=== PATIENT | female | born 1935 | race Caucasian/White ===

== ENCOUNTER 2023-06-27 13:45 | Outpatient (RCR) | payer MEDICARE, SELFPAY | END 2023-10-06 13:35 | disposition home or self-care (01) | PROVIDERS: PCP Orthopaedic Surgery; Visit Provider Family Medicine | DX: M46.1 Sacroiliitis, not elsewhere classified (principal); M70.61 Trochanteric bursitis, right hip; Z51.89 Encounter for other specified aftercare | CPT/HCPCS: 97110; 97140; 97161 ==

== ENCOUNTER 2024-06-12 10:30 | Outpatient (RCR) | payer MEDICARE, SELFPAY | END 2024-08-01 13:33 | disposition home or self-care (01) | PROVIDERS: PCP Orthopaedic Surgery; Visit Provider Family Medicine | DX: S16.1XXA Strain of muscle, fascia and tendon at neck level, initial encounter (principal); M54.2 Cervicalgia; M62.81 Muscle weakness (generalized); Z51.89 Encounter for other specified aftercare | CPT/HCPCS: 97012; 97110; 97140; 97161 ==

== ENCOUNTER 2025-01-18 13:05 | Emergency (ER) | payer MEDICARE, SELFPAY ==
[2025-01-18] VITALS (86 sets, daily range): BP systolic 170–212; BP diastolic 70–94; PULSE 61–77; RESP 0–30; TEMP 36.6–36.7; O2SAT 78–100; BMI 23.7
--- OUTSIDE RECORDS SUMMARY | 2025-01-18 13:08 | XMS_ITS | Clinical Summary ---
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 Length of need 99 1 Each 07/02/19 21 Active cholecalciferol (Vitamin D) 1,000 unit capsule Take 1 Capsule (1,000 units) by mouth once daily. 0 10/05/19 23 Active calcium carbonate (CALTRATE) 600 mg calcium (1,500 mg) tablet Take 1 Tablet (600 mg) by mouth two times daily with meals. 180 Tablet 3 10/05/19 23 Active ibuprofen (ADVIL; MOTRIN) 200 mg tablet Take 1 Tablet (200 mg) by mouth once daily. 07/04/19 25 Active gabapentin 100 mg capsuleIndication s:Cervical radiculitis,Cervi ricardo spondylosis,Cervi ricardo myofascial pain syndrome Take 1 Capsule (100 mg) by mouth two times daily. 180 Capsule 3 08/07/19 25 Active cyanocobalamin 1,000 mcg tabletIndications :B12 deficiency TAKE ONE TABLET BY MOUTH ONE TIME DAILY 90 Tablet 1 10/15/19 25 Active lisinopriL (PRINIVIL; ZESTRIL) 20 mg tabletIndications :HTN (hypertension) TAKE ONE TABLET BY MOUTH ONE TIME DAILY 90 Tablet 01/12/20 25 Active rosuvastatin (CRESTOR) 10 mg tabletIndications :Mixed hyperlipidemia Take 1 Tablet (10 mg) by mouth at bedtime. 90 Tablet 1 01/12/20 25 Active levothyroxine (SYNTHROID) 75 mcg tabletIndications :Hypothyroidism (acquired) Take 1 Tablet (75 mcg) by mouth before breakfast. 90 Tablet 01/12/20 25 Active clotrimazole (LOTRIMIN) 1 % creamIndications: Skin disease, fungal Apply topically to affected area(s) two times daily. 45 g 03/23/20 24 2024 Discontinued(* Med complete/Regim en complete/Level of care change) rosuvastatin (CRESTOR) 10 mg tabletIndications :Mixed hyperlipidemia Take 1 Tablet (10 mg) by mouth at bedtime. 90 Tablet 2 04/24/20 24 2024 Discontinued lisinopriL (PRINIVIL; ZESTRIL) 20 mg tabletIndications :HTN (hypertension) Take 1 Tablet (20 mg) by mouth once daily. 90 Tablet 2 04/30/20 24 2024 Discontinued levothyroxine 75 mcg tabletIndications :Hypothyroidism (acquired) Take 1 Tablet (75 mcg) by mouth before breakfast. 90 Tablet 10/15/19 25 2024 Discontinued Active Problems Problem Noted Date Diagnosed Date Sacroiliac inflammation 10/31/2023 Hyperlipidemia, unspecified 08/16/2017 Chronic kidney disease, stage III (moderate) 07/2016 History of partial nephrectomy 09/01/2016 Overview (09/01/2016): Renal hemangioma 08/2016 Renal mass, left 03/03/2016 Osteopenia 10/10/2015 Resolved Problems Problem Noted Date Diagnosed Date Resolved Date Acute deep vein thrombosis ( DVT) of popliteal vein of left lower extremity 10/10/2015 07/29/2021 Encounters Date Type Department Care Team Description 01/18/2025 12:10 PM CDT Office Visit [facility] [place] [address] [address] Delphine Chavarria MD Blood Pressure; Chest Pain 01/18/2025 11:45 AM CDT Orders Only [facility] [address] [place] [address] [place], [place] <No scans attached> 01/18/2025 10:40 AM CDT Nurse/Clinic Staff Only [facility] [address] [facility] [address] Blood Pressure 01/18/2025 Nurse Triage [facility] [address] [place] [address] Delphine Chavarria MD 01/18/2025 Travel 01/13/2025 Travel 01/09/2025 Refill [facility] [address] [facility] [address] Delphine Chavarria MD Refill Request (Lisinopril, Rosuvastatin, Levothyroxine) from Last 3 Months Immunizations Immunization Administration Dates Next Due COVID-19 VACCINE SPIKEVAX (M ODERNA 50MCG/0.5ML) 12YO+ PFS 03/06/2024,08/25/2023,03/15/2023 COVID-19 vaccine (fake company 2.0-Bio NTech 30mcg/0.3mL) 12YO+ BIVALENT PF, MDV 02/04/2022 COVID-19 vaccine (Pfizer-Bio NTech 30mcg/0.3mL) 12YO+ KAYKAY-SUCROSE PF, MDV 08/26/2021 COVID-19 vaccine (Lift World[employer] NTech 30mcg/0.3mL) PF, MDV 02/14/2021,07/15/2020,06/24/2020 Dtap Unspecified Formulation 03/01/2016 Influenza Virus, Unspecified 02/13/2006 Influenza, High-dose Inactivated 018,03/04/2017,03/01/2016,2011 Influenza, High-dose Quadriv alent Inactivated 03/05/2022,03/07/2020 Influenza, Inactivated AIIV4 (Age 65+ Years) Preserv Free 03/15/2023 Influenza, Inactivated IIV3 (Age 65+ Years) Preserv Free 03/06/2024,01/26/2019 Pneumococcal Poly,23-Valent (Pneumovax) 02/13/2006 Pneumococcal conj 13-Valent (Prevnar 13) 03/01/2016 Td, Preservative Free (age > = 7 Years) 02/06/2007 Tdap 03/01/2016 Tdap, Unspecified 03/01/2016 Family History Medical History Relation Name Comments Other Father AAA Cancer-breast Mother Stroke Mother Cancer Paternal Grandmother Stomach Cancer-ovarian No Family History Relation Name Status Comments Father Mother Paternal Grandmother Social History Tobacco Use Types Packs/Day Years Used Date Smoking Tobacco: Never Smokeless Tobacco: Never Tobacco Cessation:Counseling Given: Yes Alcohol Use Standard Drinks/Week Comments Yes 7 (1 standard drink = 0.6 oz pur e alcohol) Glass of wine a night PHQ-2 Answer Date Recorded PHQ-2 TOTAL SCORE 2 03/28/2024 Social Connections Answer Date Recorded Do you often feel lonely or isolated from those around you? 0 10/31/2023 Financial Resource Strain Answer Date R ecorded Difficulty of Paying Living Expenses 3 10/31/2023 Difficulty of Paying Living Expenses Not on file 10/31/2023 Food Insecurity Answer Date Recorded Do you worry your food will run out before you are able to buy more? 1 10/31/2023 Transportation Needs Answer Date Record ed Does lack of transportation keep you from medica l appointments? 1 10/31/2023 Does lack of transportation keep you from work, meetings or getting things that you need? 1 10/31/2023 Housing Stability Answer Date Recorded What is your housing situation today? 1 10/31/2023 Utilities Answer Date Recorded Do you have trouble paying f or utilities (for example, heat, electricity, water, phone)? 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 Gender Identity Not on file Sexual Orientation Not on file Occupation Industry Job Start Date Job End Date Retired Not on file Not on file Not on file Obstetrics History Para Term AB IAB SAB Ectopic Multiple Livin g Live Births 0 0 0 0 0 0 0 0 0 0 Last Filed Vital Signs Vital Sign Reading Time Taken Comments Blood Pressure 204/82 01/18/2025 12:13 PM CDT Pulse 79 01/18/2025 12:13 PM CDT Temperature 36.5 C (97.7 F) 07/04/2024 8:22 AM DIRECTOR OF CONSERVATION Respiratory Rate 16 07/04/2024 8:22 AM DIRECTOR OF CONSERVATION Oxygen Saturation 98% 01/18/2025 12:13 PM CDT Inhaled Oxygen Concentration - - Weight 61.1 kg (134 lb 9.6 oz) 01/18/2025 12:13 PM CDT Height 160 cm (5' 3) 08/08/2024 8:02 AM CDT Body Mass Index 23.84 08/08/2024 8:02 AM CDT Plan of Treatment Health Maintenance Due Date Last Done Comments Zoster (shingles) series for age 50+ (1 of 2) 1987 RSV vaccine for adults or (1 - 1-dose 75+ series) 01/31/2012 Influenza Vaccine (#1) 2025 , 03/15/2023, 01/26/2019, Additional history exists Depression screening for age 12+ 03/28/2025 03/28/2024 Medicare Wellness for age 65+ 03/29/2025 03/28/2024, 10/04/2022, 10/01/2021, Additional history exists BMI (ht and wt on same day) for age 18+ 08/08/2025 08/08/2024, 07/04/2024, 07/04/2024, Additional history exists Tetanus booster 03/01/2026 03/01/2016, 02/13, 02/06/2007 Pneumococcal series for age 50+ Completed 03/01/2016, 02/13/2006 DEXA/DXA scan for age 65+ Completed 10/05/2022, COVID-19 vaccine series Completed 10/13/19 25, 03/06/2024, 08/25/2023, Additional history exists Hepatitis B series for 19+ Aged Out N o longer eligible based on patient's age to complete this topic Procedures Procedure Name Priority Date/Time Associated Diagnosis Comments XR DXA BONE DENSITY 2 SITES AXIAL Routine 10/05/2022 1:14 PM CDT Menopause from Last 3 Months or Most Recently Relevant to Health Maintenance Results * (ABNORMAL) XR DXA BONE DENSITY 2 SITES AXIAL (10/05/2022 1:14 PM CDT) Anatomical Region Laterality Modality Spine, HIPS, HIPL, HIPR Other Impressions 10/15/2022 4:44 PM CDT Osteopenia. RECOMMENDATIONS: The National Osteoporosis Foundation recommends pharmacologic treatment for patients with T-scores of -2.5 or less, patients with prior history of fragility fractures, or patients with 10-year probability of greater than 3% at hips or greater than 20% of suffering major osteoporotic fractures. Recommend continued optimization of calcium and vitamin D intake through dietary means and/or supplementation and regular exercise. Consider pharmacologic therapy for osteopenia with increased fracture risk. Follow-up bone density reading in 2 years if therapy initiated to assess therapeutic efficacy. Benita Cruz PA-C [facility] 10/15/2022 Narrative 10/15/2022 4:44 PM CDT For Patients: Results are automatically released to your [facility] ([employer]) account once available, in compliance with federal regulations. This means that you may see your results before your provider has had a chance to review them. Please allow 2-3 business days for your provider to comment on the results. XR DXA Bone Mineral Density (BMD) EXAM LOCATION: [address] [address] PATIENT NAME: Osmany Baez DATE OF : 1935 EXAM DATE: 10/05/2022 REQUESTING PROVIDER: Delphine Chavarria MD GENDER AT : female HEIGHT: 5' 3.5 (10/04/2022) WEIGHT: 128 lb (10/04/2022) MENOPAUSAL STATUS: Postmenopausal RACE/ETHNICITY: White RISK FACTORS: White Race CURRENT MEDICATION FOR BONE LOSS: NONE INDICATION: Follow-up of existing osteopenia and Post-Menopause COMPARISON DATE(S): 2017 DXA scans are compared to prior studies for a patient only when the two (or more) studies were performed on the same scanner. It is not possible to compare data generated on one scanner to data from another because there are not standards in DXA equipment. This applies even if the two scanners are made by the same concrete mixer operator helper. PROCEDURE: Dual-energy x-ray absorptiometry performed with routine technique. Reporting is completed in the form of a T-score. The T-score represents the standard deviation from peak bone mass based on young healthy adult. A Z-score is used for diagnosis in premenopausal women, and for men under the age of 50. FINDINGS: RESULT LUMBAR SPINE L1 - L4(L3) BMD: 1.249 g/cm2 T-Score: + 0.5 Z-Score: + 2.7 Change from prior in 2018: Decrease 4.1%. RESULTS FEMUR Left femoral neck BMD: 0.742 g/cm2 T-Score: - 2.1 Z-Score: + 0.4 Change from prior in 2018: Decrease 4.4%. Right femoral neck BMD: 0.777 g/cm2 T-Score: - 1.9 Z-Score: + 0.7 Change from prior in 2018: Decrease 1.0%. Left hip BMD: 0.809 g/cm2 T-Score: - 1.6 Z-Score: + 0.9 Change from prior in 2018: Decrease 5.5%. Right hip BMD: 0.846 g/cm2 T-Score: - 1.3 Z-Score: + 1.2 Change from prior in 2018: Decrease 4.6%. WHO criteria: Normal: T-score at or above -1 SD Osteopenia: T-score between -1.1 and -2.4 SD Osteoporosis: T-score at or below -2.5 SD FRAX RISK CALCULATION (USED FOR OSTEOPENIA ONLY): 10-year probability of major osteoporotic fracture: 15.3%. 10-year probability of hip fracture: 5.2%. Delphine Chavarria MD DEXA Final R esult from Last 3 Months or Most Recently Relevant to Health Maintenance Insurance MEDICARE PART A HB ONLY MEDICARE PART B HB ONLY [facility] MR Advance Directives Documents on File Type Date Recorded Patient Crab Backer Expl anation Healthcare Directive 07/02/2020 12:34 PM H [facility] CARE DIRECTIVE * Full Code (Latest Code Status on File) Date Activated Date Inactivated Comments 08/25/2016 11:13 AM 08/28/2016 5:20 PM Care Teams Construction Or Leak Gang Laborer Relationship Specialty Start Date End Date Delphine Chavarria MD [address] [place] [address] PCP - General Family Practice 01/18/25 Barby Plata, RN Registered Nurse 08/26/16
--- NOTE | 2025-01-18 13:21 | CRLHL7_ITS ---
For Patients: As a result of the Century Cures Act, medical imaging exams and procedure reports are released immediately into your electronic medical record. You may view this report before your referring provider. If you have questions, please contact your health care provider. INDICATION: Chest pain. TECHNIQUE: Chest 1 view. COMPARISON: None. FINDINGS: Cardiovascular and mediastinum: Heart size and vasculature are normal in caliber and appearance. Lungs and pleural spaces: Lungs are clear. No pleural effusion, or pneumothorax. Bones and soft tissues: Unremarkable for age. IMPRESSION: No evidence of an acute pulmonary process. Dictated by Conrad Hernandez MD @ 01/18/2025 1:46:47 PM (Electronically Signed)
--- NOTE | 2025-01-18 13:29 | ED.GENADULT ---
HPI - General Adult General Chief complaint: Chest Pain Stated complaint: possible heart attack, from [facility] Time Seen by Provider: 01/18/25 13:15 History of Present Illness HPI narrative: Patient is an 89 year white female who has no history of coronary disease, was seen in the clinic today for blood pressure check in noted to have elevated blood pressure and started getting chest tightness. She noted the chest tightness started after her 's urinary catheter was not working and this was stressful. She also had a lot of psychosocial stressors with family members including her having cancer by her report. She has not had chest pain prior. She had no radiation to her neck arm jaw no diaphoresis, no shortness of breath. Just feels generally ?tight? in her chest. This tends to come and go. No leg swelling or edema. No bleeding or clotting problems. Patient has hypertension and elevated lipids. Also hypothyroidism. Does not smoke, nondiabetic. Related Data Home Medications ?Medication ?Instructions ?Recorded ?Confirmed calcium acetate PO 06/29/24 06/29/24 cyanocobalamin (vitamin B-12) 1,000 mcg PO DAILY 06/29/24 06/29/24 1,000 mcg tablet levothyroxine 75 mcg tablet 75 mcg PO QAM 06/29/24 06/29/24 lisinopril 20 mg tablet 20 mg PO DAILY 06/29/24 06/29/24 rosuvastatin 10 mg tablet 10 mg PO QPM 06/29/24 06/29/24 Allergies Allergy/AdvReac Type Severity Reaction Status Date / Time No Known Drug Allergies Allergy Verified 06/29/24 13:24 Review of Systems Status of ROS: Reports: 6 or more systems reviewed and unremarkable except as noted in History and below PFSH PFS Social History Smoking Status: Never smoker Do you use any of these nicotine containing products: None Second hand tobacco smoke exposure: No How often do you have a drink containing alcohol: never How often do you have six or more drinks on one occasion: Never AUDIT-C Alcohol total score: 0 Non-prescribed substance use: denies use service: No Exam Narrative: Exam Narrative: Objective: Patient's blood pressure is 212/94 afebrile pulse is 77 regular O2 sat 99% on room air Alert orient x3 noncyanotic No distress HEENT shows no facial asymmetry no scleral icterus neck is supple chest is clear no rales or wheezing heart rhythm regular heart murmur abdomen benign soft extremities are no edema neurologic nonfocal upper extremities normal strength and sensation lower extremities noted, patient is ambulatory. Const: Vital Signs, click to edit/add: Vital Signs - 24 hr 01/18/25 13:10 01/18/25 13:30 01/18/25 13:35 Temperature 97.8 F Pulse Rate [Pulse Oximeter] 77 Respiratory Rate 18 18 Blood Pressure [Ri ght Upper Arm] 212/94 H Pulse Oximetry 99 99 99 Oxygen Delivery Me thod Room Air 01/18/25 13:35 01/18/25 13:36 01/18/25 13:38 Temperature Pulse Rate [Pulse Oximeter] Respiratory Rate 12 20 13 Blood Pressure [Ri ght Upper Arm] Pulse Oximetry 94 99 Oxygen Delivery Me thod 01/18/25 13:40 01/18/25 13:41 01/18/25 13:42 Temperature Pulse Rate [Pulse Oximeter] Respiratory Rate 9 L 18 11 L Blood Pressure [Ri ght Upper Arm] Pulse Oximetry 95 96 Oxygen Delivery Me thod 01/18/25 13:44 01/18/25 13:46 01/18/25 13:48 Temperature Pulse Rate [Pulse Oximeter] Respiratory Rate 8 L 12 8 L Blood Pressure [Ri ght Upper Arm] Pulse Oximetry 99 96 Oxygen Delivery Me thod 01/18/25 13:50 01/18/25 13:52 01/18/25 13:54 Temperature Pulse Rate [Pulse Oximeter] Respiratory Rate 13 14 12 Blood Pressure [Ri ght Upper Arm] Pulse Oximetry 100 100 99 Oxygen Delivery Me thod 01/18/25 13:56 01/18/25 13:58 01/18/25 14:00 Temperature Pulse Rate [Pulse Oximeter] Respiratory Rate 14 12 14 Blood Pressure [Ri ght Upper Arm] Pulse Oximetry 100 99 93 Oxygen Delivery Me thod 01/18/25 14:02 01/18/25 14:03 01/18/25 14:04 Temperature Pulse Rate [Pulse Oximeter] Respiratory Rate 11 L 16 16 Blood Pressure [Ri ght Upper Arm] Pulse Oximetry 100 93 99 Oxygen Delivery Me thod 01/18/25 14:06 01/18/25 14:08 01/18/25 14:10 Temperature Pulse Rate [Pulse Oximeter] Respiratory Rate 14 13 Blood Pressure [Ri ght Upper Arm] 190/90 H Pulse Oximetry 98 96 Oxygen Delivery Me thod 01/18/25 15:03 Temperature 98.0 F Pulse Rate [Pulse Oximeter] 63 Respiratory Rate 16 Blood Pressure [Ri ght Upper Arm] 170/77 H Pulse Oximetry 98 Oxygen Delivery Me thod Room Air Course Vital Signs Vital signs: Initial Vital Signs Temperature 97.8 F 01/18/25 13:10 Temperature Source Temporal Artery Scan 01/18/25 13:10 Pulse Rate 77 01/18/25 13:10 Pulse Rhythm Regular 01/18/25 13:10 Respiratory Rate 18 01/18/25 13:10 Blood Pressure 212/94 H 01/18/25 13:10 Blood Pressure Mean 133 H 01/18/25 13:10 Blood Pressure Position Sitting 01/18/25 13:10 Pulse Oximetry 99 01/18/25 13:10 Oxygen Delivery Method Room Air 01/18/25 13:10 Vital Signs Temperature 97.8 F 01/18/25 13:10 Pulse Rate 77 01/18/25 13:10 Respiratory Rate 18 01/18/25 13:10 Blood Pressure 212/94 H 01/18/25 13:10 Pulse Oximetry 99 01/18/25 13:10 Oxygen Delivery Method Room Air 01/18/25 13:10 Temperature 98.0 F 01/18/25 15:03 Pulse Rate 63 01/18/25 15:03 Respiratory Rate 16 01/18/25 15:03 Blood Pressure 170/77 H 01/18/25 15:03 Pulse Oximetry 98 01/18/25 15:03 Oxygen Delivery Method Room Air 01/18/25 15:03 Medications Administered Medications: Generic Name Dose Route Start Last Admin Trade Name Freq PRN Reason Stop Dose Admin Heparin Sodium/Dextrose 25,000 unit in 500 mls @ 0 mls/hr 01/18/25 14:45 01/18/25 15:00 Heparin IV 12 unit/hr .Q0M ALEXIS 0.24 mls/hr Protocol Administration Per Protocol Discontinued Medications Generic Name Dose Route Start Last Admin Trade Name Freq PRN Reason Stop Dose Admin Aspirin 324 mg 01/18/25 13:20 01/18/25 13:41 Aspirin 81 Mg Tab.Chew PO 01/18/25 13:21 324 mg ONCE ONE Administration Heparin Sodium (Porcine) 3,600 unit 01/18/25 14:31 01/18/25 15:00 Heparin 5,000 Unit/0.5 Ml Inj 60 unit/kg (3600 unit) 01/18/25 14:32 3,600 unit IVP Administration ONCE ONE Sodium Chloride 500 mls @ 500 mls/hr 01/18/25 13:20 01/18/25 13:43 0.9 % Sodium Chloride 500 Ml IV 01/18/25 14:19 500 mls/hr .Q1H ONE Administration Metoprolol Tartrate 25 mg 01/18/25 13:45 01/18/25 13:41 Metoprolol Tartrate 25 Mg Tablet PO 01/18/25 13:46 25 mg ONCE ONE Administration Metoprolol Tartrate 12.5 mg 01/18/25 14:45 01/18/25 14:55 Metoprolol Tartrate 25 Mg Tablet PO 01/18/25 14:46 12.5 mg ONCE ONE Administration Medical Decision Making MDM Narrative Medical decision making narrative: 89-year-old female with hypertension and a lot of psychosocial stressors presents with chest tightness. Her initial EKG by my read independently shows sinus rhythm with right bundle branch block but no acute acute ST T wave changes. These symptoms did seem to start with a stressful event of elevated blood pressure and 's catheter malfunctioning. Might be reasonable to give her aspirin, will give her a small dose IV Ativan to see if that helps her symptoms. Will also because her blood pressure is elevated and she is not sure she took her lisinopril today give her 25 mg of metoprolol orally. Will check electrolytes, troponin, put on a phototypesetting equipment monitor and oximeter. Patient is relatively asymptomatic at present. Will also check a chest x-ray. Disposition pending findings on the labs and her clinical response. Addendum 2:20 p.m.: The patient is got no further chest tightness. Her EKG shows right bundle-branch block no obvious acute EKG changes. She also has a troponin that is slightly elevated in the lab troponin I is 0.15. This is above normal. She is not having ongoing symptoms. Her blood pressures improved. Will discuss with [facility] regarding options for treatment. She is pretty active in vital despite her age and perhaps even angiography and stenting might be reasonable. At this point given she is asymptomatic and will give her additional medication but will talk to Cardiology. Addendum 2:36 p.m.: Patient has a lab elevated troponin 0.15. She has no further chest symptoms. Discussed with cardiology who thought this may be either stress cardiomyopathy verses hypertensive elevation in her troponin, she also has an element of elevated BNP. Her renal function appears normal in her heart size appears normal. Cardiology cardiology felt that we could control blood pressure, keep on a phototypesetting equipment monitor, track serial troponins if they do not bump markedly or she does not have recurrent symptoms likely workup as an outpatient such as echocardiogram and Cardiology consultation. If enzymes would elevate and she gets recurrent symptoms then transfer may be indicated. Will discuss with hospitalist Addendum 3:45 p.m. patient has had a 2nd troponin done at the recommendation of her hospitalist which turned out to be an excellent idea as her troponin is elevated 0.46. She continues to be pain-free. She is on heparin. Received aspirin. After I had discussed with Cardiology if her troponins keep elevating that transfer be appropriate and this will be arranged. Will talk to Cardiology again. And transfer sheets completed patient is in stable condition. There was a 68 hour wait at [facility] for transfers but I think that would be the appropriate thing given her general health is excellent and her activity levels excellent and probably angiographic studying and stenting would be appropriate if needed. Lab Data Labs: Lab Results 01/18/25 01/18/25 01/18/25 Range/Units 13:30 13:33 14:43 WBC 5.29 (4.50-11.00) K/uL RBC 3.72 L (4.00-5.20) m/uL Hgb 11.6 L (12.0-16.0) gm/dL Hct 36.1 (33.0-51.0) % MCV 97 (80-100) fL MCH 31 (26-34) pg MCHC 32 (32-36) gm/dL RDW Coeff of Robin 13.6 (11.5-15.5) % Plt Count 203 (140-440) K/uL Neut % (Auto) 63.7 (42.0-72.0) % Lymph % (Auto) 22.9 (20-44) % Gentry % (Auto) 11.7 H (0.0-11.0) % Eos % (Auto) 1.1 (0.0-7.0) % Baso % (Auto) 0.6 (0.0-3.0) % Neut # (Auto) 3.37 (1.7-7.0) K/uL Lymph # (Auto) 1.21 (0.90-2.90) K/uL Gentry # (Auto) 0.60 (0.00-0.90) K/UL Eos # (Auto) 0.06 (0.00-0.50) K/uL Baso # (Auto) 0.03 (0.00-0.30) K/uL Abs Immat Gran (auto) 0.00 (0.00-0.30) K/uL Imm/Tot Granulo (auto) 0.0 % INR (0.91-1.10) APTT (23-33) Seconds D-Dimer Quant (PE/DVT) (0.00-0.50) ug/ml Sodium 138 (135-149) mmol/L Potassium 4.1 (3.6-5.1) mmol/L Chloride 106 (96-114) mmol/L Carbon Dioxide 27 (20-32) mmol/L Anion Gap 5 L (7-15) mEq/L BUN 25 (7-30) mg/dL Creatinine 1.3 (0.5-1.5) mg/dL Estimated Creat Clear 25.22 Estimated GFR 40 ml/min Glucose 101 (60-115) mg/dL Calcium 9.2 (8.4-10.6) mg/dL Total Bilirubin 0.5 (0.1-1.5) mg/dL Direct Bilirubin 0.2 (0.0-0.5) mg/dL AST 29 (12-35) U/L ALT 12 (4-35) U/L Alkaline Phosphatase 46 (40-150) U/L Troponin I 0.15 H* (0.01-0.04) ng/mL NT-Pro-B Natriuret Pep 1030 H (See Note) pg/mL Total Protein 7.2 (6.0-8.3) g/dL Albumin 4.1 (3.3-5.0) g/dL Lab Acknowledgement Test Added POC Troponin I 0.12 H (0.01-0.04) ng/ml 01/18/25 01/18/25 Range/Units 14:58 15:03 WBC (4.50-11.00) K/uL RBC (4.00-5.20) m/uL Hgb (12.0-16.0) gm/dL Hct (33.0-51.0) % MCV (80-100) fL MCH (26-34) pg MCHC (32-36) gm/dL RDW Coeff of Robin (11.5-15.5) % Plt Count (140-440) K/uL Neut % (Auto) (42.0-72.0) % Lymph % (Auto) (20-44) % Gentry % (Auto) (0.0-11.0) % Eos % (Auto) (0.0-7.0) % Baso % (Auto) (0.0-3.0) % Neut # (Auto) (1.7-7.0) K/uL Lymph # (Auto) (0.90-2.90) K/uL Gentry # (Auto) (0.00-0.90) K/UL Eos # (Auto) (0.00-0.50) K/uL Baso # (Auto) (0.00-0.30) K/uL Abs Immat Gran (auto) (0.00-0.30) K/uL Imm/Tot Granulo (auto) % INR 1.04 (0.91-1.10) APTT 31 (23-33) Seconds D-Dimer Quant (PE/DVT) 2.39 H (0.00-0.50) ug/ml Sodium (135-149) mmol/L Potassium (3.6-5.1) mmol/L Chloride (96-114) mmol/L Carbon Dioxide (20-32) mmol/L Anion Gap (7-15) mEq/L BUN (7-30) mg/dL Creatinine (0.5-1.5) mg/dL Estimated Creat Clear Estimated GFR ml/min Glucose (60-115) mg/dL Calcium (8.4-10.6) mg/dL Total Bilirubin (0.1-1.5) mg/dL Direct Bilirubin (0.0-0.5) mg/dL AST (12-35) U/L ALT (4-35) U/L Alkaline Phosphatase (40-150) U/L Troponin I 0.46 H* (0.01-0.04) ng/mL NT-Pro-B Natriuret Pep (See Note) pg/mL Total Protein (6.0-8.3) g/dL Albumin (3.3-5.0) g/dL Lab Acknowledgement POC Troponin I (0.01-0.04) ng/ml Discharge Plan Discharge Clinical Impression: Chest tightness, Psychosocial stressors, Hypertension, Acute non-ST elevation myocardial infarction (NSTEMI) Patient Disposition: [facility] Prescriptions: No Action levothyroxine 75 mcg tablet 75 mcg PO QAM lisinopril 20 mg tablet 20 mg PO DAILY rosuvastatin 10 mg tablet 10 mg PO QPM cyanocobalamin (vitamin B-12) 1,000 mcg tablet 1,000 mcg PO DAILY calcium acetate PO Stand Alone Forms: MyHealth Info Instructions
[2025-01-18 13:39] LABS: Hematocrit 36.1 % (33.0-51.0); Hemoglobin* 11.6 gm/dL (12.0-16.0); Immature Granulocytes Abs Auto 0.00 K/uL (0.00-0.30); Immature Granulocytes Pct Auto 0.0 %; Lymphocytes Absolute Auto 1.21 K/uL (0.90-2.90); Mean Corpuscular HGB Conc 32 gm/dL (32-36); Mean Corpuscular Hemoglobin 31 pg (26-34); Mean Corpuscular Volume 97 fL (80-100); RDW Coefficient of Variation % 13.6 % (11.5-15.5); Red Blood Count 3.72 m/uL (4.00-5.20); White Blood Count* 5.29 K/uL (4.50-11.00)
[2025-01-18] MEDS: METOPROLOL TARTRATE 25 MG TABLET PO (13:41)
[2025-01-18] MEDS: ASPIRIN 81 MG TAB.CHEW 324 MG PO (13:41)
[2025-01-18 13:43] LABS: Slide Review Reflex No
[2025-01-18] MEDS: 0.9 % SODIUM CHLORIDE 500 ML 500 ML IV (13:43)
[2025-01-18 13:45] LABS: Troponin, Point-of-Care* 0.12 ng/ml (0.01-0.04)
[2025-01-18 13:58] LABS: Albumin* 4.1 g/dL (3.3-5.0); Chloride* 106 mmol/L (96-114)
[2025-01-18 13:59] LABS: Potassium* 4.1 mmol/L (3.6-5.1); Sodium* 138 mmol/L (135-149)
[2025-01-18 14:01] LABS: Alanine Aminotransferase* 12 U/L (4-35); Anion Gap 5 mEq/L (7-15); Aspartate Amino Transferase* 29 U/L (12-35); Blood Urea Nitrogen* 25 mg/dL (7-30); Carbon Dioxide* 27 mmol/L (20-32); Creatinine* 1.3 mg/dL (0.5-1.5); Est. Creatinine Clearance* 25.22; Estimated Glomerular Filt Rate 40 ml/min; Total Protein* 7.2 g/dL (6.0-8.3)
[2025-01-18 14:02] LABS: Alkaline Phosphatase* 46 U/L (40-150); Bilirubin Direct* 0.2 mg/dL (0.0-0.5); Bilirubin Total* 0.5 mg/dL (0.1-1.5); Calcium* 9.2 mg/dL (8.4-10.6); Glucose* 101 mg/dL (60-115)
[2025-01-18 14:12] LABS: NT Pro B Type NatriureticPept* 1030 pg/mL (See Note)
[2025-01-18] MEDS: METOPROLOL TARTRATE 25 MG TABLET 12.5 MG PO (14:55)
[2025-01-18] MEDS: HEPARIN 25,000 UNIT/500 ML BAG 0.24 UNIT IV (15:00)
[2025-01-18] MEDS: HEPARIN 5,000 UNIT/0.5 ML INJ 3600 UNIT IVP (15:00)
[2025-01-18 15:37] LABS: D Dimer Quantitative* 2.39 ug/ml (0.00-0.50)
[2025-01-18 15:46] LABS: INR 1.04 (0.91-1.10); Prothrombin Time 14.5 Seconds
== END 2025-01-18 18:37 | disposition short-term general hospital (02) ==
PROVIDERS: Family Medicine; Emergency Provider Family Medicine; PCP Family Medicine
DX: I21.4 Non-ST elevation (NSTEMI) myocardial infarction (principal); I10 Essential (primary) hypertension; Z65.8 Other specified problems related to psychosocial circumstances
CPT/HCPCS: 36415; 71045; 80048; 80076; 83880; 84484; 85025; 85379; 85610; 85730; 93005; 94761; 99285; A9270; J1644; J7030

== ENCOUNTER 2025-01-18 18:13 | Outpatient (CLI) | payer MEDICARE, SELFPAY | END 2025-01-18 18:14 | disposition home or self-care (01) | LOC: AMB 01-21 12:56 | PROVIDERS: PCP Family Medicine; Visit Provider Student in an Organized Health Care Education/Training Program | DX: I21.4 Non-ST elevation (NSTEMI) myocardial infarction (principal) | CPT/HCPCS: A0425; A0434 ==